=== PATIENT | female | born 1970 | race American Indian/Alaskan Native ===

== ENCOUNTER 2017-09-02 15:15 | Inpatient (IN) | payer OTHER ==
[2017-09-02 16:21] LABS: Basophils % (Auto) 0.2 % (0.0-1.8); Eosinophils % (Auto) 0.8 % (0.0-4.3); Hematocrit 28.6 % (30.3-42.9); Hemoglobin 9.4 gm/dl (10.1-14.3); Lymphocytes # (Auto) 2.5 K/mm3 (1.2-5.4); Lymphocytes % (Auto) 41.6 % (13.4-35.0); Mean Corpuscular HGB Conc 33 % (30-34); Mean Corpuscular Hemoglobin 29 pg (28-32); Mean Corpuscular Volume 89 fl (79-97); Monocytes # (Auto) 0.5 K/mm3 (0.0-0.8); Monocytes % (Auto) 8.1 % (0.0-7.3); Platelet Count 244 K/mm3 (140-440); Red Blood Count 3.22 M/mm3 (3.65-5.03); Red Cell Distribution Width 14.1 % (13.2-15.2)
[2017-09-02 16:44] LABS: BUN/Creatinine Ratio 27; Blood Urea Nitrogen 16 mg/dL (7-17); Calcium 8.8 mg/dL (8.4-10.2); Hemolysis Index 8
[2017-09-02 16:45] LABS: INR 0.99 (0.87-1.13)
[2017-09-02 16:46] LABS: Partial Thromboplastin Time 28.9 Sec. (24.2-36.6)
--- NOTE | 2017-09-02 17:38 | Emergency Department Report ---
ED GI Bleed HPI - General Chief complaint: GI Bleed Stated complaint: BLOODY STOOL Time Seen by Provider: 09/02/17 17:21 Source: patient Mode of arrival: Ambulatory Limitations: No Limitations - History of Present Illness Initial comments: 46-year-old female past medical history obesity,? Anemia, right knee surgery presents with complaint of 2 weeks of intermittent bloody stools. Patient states that in the last several days she has had multiple episodes of bright red blood per rectum bright red blood on toilet paper and dark blood on stools when defecating. Patient denies chest pain shortness of breath palpitations. Does state she has noted some pallor of her skin. Patient is awake alert and oriented 3 not in acute distress. Patient is concerned that she has been taking diclofenac for pain and this may have contributed to her bright red blood per rectum. Patient denies any abdominal pain. Last menstrual period one month ago. MD complaint: blood on toilet paper, melena Onset/Timin -: week(s) Quality: painless Consistency: constant Improves with: none Worsens with: none Context: other (NSAID use) Associated Symptoms: denies other symptoms Treatments Prior to Arrival: none - Related Data Allergies Allergy/AdvReac Type Severity Reaction Status Date / Time codeine AdvReac Nausea Verified 09/02/17 15:28 ED Review of Systems ROS: Stated complaint: BLOODY STOOL Other details as noted in HPI Constitutional: denies: chills, fever Eyes: denies: eye pain, eye discharge, vision change ENT: denies: ear pain, throat pain Respiratory: denies: cough, shortness of breath, wheezing Cardiovascular: denies: chest pain, palpitations Endocrine: no symptoms reported Gastrointestinal: denies: abdominal pain, nausea, diarrhea Genitourinary: denies: urgency, dysuria, discharge Musculoskeletal: denies: back pain, joint swelling, arthralgia Skin: denies: rash, lesions Neurological: denies: headache, weakness, paresthesias Psychiatric: denies: anxiety, depression Hematological/Lymphatic: denies: easy bleeding, easy bruising ED Past Medical Hx - Past Medical History Previous Medical History?: No - Surgical History Past Surgical History?: Yes Additional Surgical History: Knee replacement - Social History Smoking Status: Never Smoker Substance Use Type: None ED Physical Exam - General Limitations: No Limitations General appearance: alert, in no apparent distress - Head Head exam: Present: atraumatic, normocephalic - Eye Eye exam: Present: normal appearance, PERRL, EOMI - ENT ENT exam: Present: mucous membranes moist - Neck Neck exam: Present: normal inspection - Respiratory Respiratory exam: Present: normal lung sounds bilaterally. Absent: respiratory distress - Cardiovascular Cardiovascular Exam: Present: regular rate, normal rhythm. Absent: systolic murmur, diastolic murmur, rubs, gallop - GI/Abdominal GI/Abdominal exam: Present: soft, normal bowel sounds - Rectal Rectal exam: Present: heme (+) stool, black stool, bloody stool - Extremities Exam Extremities exam: Present: normal inspection - Back Exam Back exam: Present: normal inspection - Neurological Exam Neurological exam: Present: alert, oriented X3 - Psychiatric Psychiatric exam: Present: normal affect, normal mood - Skin Skin exam: Present: warm, dry, intact, normal color. Absent: rash ED Course Vital Signs 09/02/17 15:24 Temperature 98.4 F Pulse Rate 103 H Respiratory 16 Rate Blood Pressure 105/78 O2 Sat by Pulse 100 Oximetry ED Medical Decision Making - Lab Data Result diagrams: 09/02/17 16:12 09/02/17 16:12 - Medical Decision Making A/P: Concern for lower GI bleed, bright red blood per rectum 1- patient has been taking NSAIDs specifically diclofenac for several weeks 2- stool guaic positive, Hemoccult card positive. H&H . 3-case discussed with ED attending Louise moore for admission. Patient will require consultation and evaluation by gastroenterology for possible colonoscopy given suspicion of lower GI bleed 4-pt is amenable to this clinical plan and understands our clinical concern Critical care attestation.: If time is entered above; I have spent that time in minutes in the direct care of this critically ill patient, excluding procedure time. ED Disposition Clinical Impression: Lower GI bleed, Rectal bleeding Disposition: DC-09 OP ADMIT IP TO THIS HOSP Is pt being admited?: Yes Does the pt Need Aspirin: No Condition: Stable Forms: Accompanied Note
[2017-09-02] MEDS ORDERED: NACL 0.9% 1000 ML 1,000 ML IV ONE (18:27)
[2017-09-02 18:50] LABS: Basophils % (Auto) 0.2 % (0.0-1.8); Eosinophils # (Auto) 0.1 K/mm3 (0.0-0.4); Eosinophils % (Auto) 0.9 % (0.0-4.3); Hematocrit 27.8 % (30.3-42.9); Hemoglobin 9.2 gm/dl (10.1-14.3); Lymphocytes # (Auto) 2.4 K/mm3 (1.2-5.4); Lymphocytes % (Auto) 43.4 % (13.4-35.0); Mean Corpuscular HGB Conc 33 % (30-34); Mean Corpuscular Hemoglobin 30 pg (28-32); Mean Corpuscular Volume 89 fl (79-97); Monocytes # (Auto) 0.4 K/mm3 (0.0-0.8); Monocytes % (Auto) 8.1 % (0.0-7.3); Platelet Count 226 K/mm3 (140-440)
[2017-09-02] MEDS ORDERED: SODIUM CHLORIDE FLUSH SYRINGE 10 ML IV PRN (21:23)
[2017-09-02] MEDS ORDERED: TYLENOL PO PRN (21:23)
[2017-09-02] MEDS ORDERED: MORPHINE IV PRN (21:23)
[2017-09-02] MEDS ORDERED: DILAUDID IV PRN (21:23)
[2017-09-02] MEDS ORDERED: ZOFRAN IV PRN (21:23)
--- NOTE | 2017-09-02 21:23 | History and Physical Report ---
History of Present Illness Date of examination: 09/02/17 Date of admission: 09/02/17 18:17 Chief complaint: CC Lower GI Bleed History of present illness: History of Present Illness: 46-year-old female past medical history of obesity DJD S/p Rt Knee surgery presents with complaint of 2 weeks of intermittent bloody stools. Patient states that in the last several days she has had multiple episodes of bright red blood per rectum bright red blood on toilet paper and dark blood on stools when defecating. Patient denies chest pain shortness of breath palpitations. Does state she has noted some pallor of her skin. Patient is awake alert and oriented 3 not in acute distress. Patient is concerned that she has been taking diclofenac for pain and this may have contributed to her bright red blood per rectum. Taking Diclofenac for one year. Patient denies any abdominal pain. Last menstrual period one month ago. Past Medical History DJD sec to Obesity Surgical History Past Surgical History?: Yes Additional Surgical History: Knee replacement Social History Smoking Status: Never Smoker Substance Use Type: None Family History Htn Review of Systems ROS: Stated complaint: BLOODY STOOL Other details as noted in HPI Constitutional: denies: chills, fever Eyes: denies: eye pain, eye discharge, vision change ENT: denies: ear pain, throat pain Respiratory: denies: cough, shortness of breath, wheezing Cardiovascular: denies: chest pain, palpitations Endocrine: no symptoms reported Gastrointestinal: denies: abdominal pain, nausea, diarrhea Genitourinary: denies: urgency, dysuria, discharge Musculoskeletal: denies: back pain, joint swelling, arthralgia Skin: denies: rash, lesions Neurological: denies: headache, weakness, paresthesias Psychiatric: denies: anxiety, depression Hematological/Lymphatic: denies: easy bleeding, easy bruising Medications and Allergies Allergies Allergy/AdvReac Type Severity Reaction Status Date / Time codeine AdvReac Nausea Verified 09/02/17 15:28 Home Medications Medication Instructions Recorded Confirmed Last Taken Type No Known Home Medications [No 09/02/17 09/02/17 Unknown History Reported Home Medications] Active Meds: Active Medications Sodium Chloride (Nacl 0.9% 1000 Ml) 1,000 mls @ 125 mls/hr IV ONCE ONE Stop: 09/03/17 03:26 Last Admin: 09/02/17 19:25 Dose: 125 mls/hr Exam - Constitutional Vitals: Temp Pulse Resp BP Pulse Ox 98.4 F 98 H 18 100/74 99 09/02/17 20:44 09/02/17 20:44 09/02/17 20:44 09/02/17 20:44 09/02/17 20:44 General appearance: Present: no acute distress, well-nourished - EENT Eyes: Present: PERRL ENT: hearing intact, clear oral mucosa - Neck Neck: Present: supple, normal ROM - Respiratory Respiratory effort: normal Respiratory: bilateral: CTA - Cardiovascular Heart rate: 80 Rhythm: regular Heart Sounds: Present: S1 & S2. Absent: rub, click - Extremities Extremities: pulses symmetrical, No edema Peripheral Pulses: within normal limits - Abdominal General gastrointestinal: Present: soft, non-tender, non-distended, normal bowel sounds Female genitourinary: Present: normal - Rectal Rectal Exam: stool bloody - Integumentary Integumentary: Present: clear, warm, dry - Musculoskeletal Musculoskeletal: gait normal, strength equal bilaterally - Psychiatric Psychiatric: appropriate mood/affect, intact judgment & insight - Neurologic Neurologic: CNII-XII intact, moves all extremities - Allied Health Allied health notes reviewed: nursing, case management Results - Labs CBC & Chem 7: 09/02/17 18:42 09/02/17 16:12 Labs: Laboratory Last Values WBC 5.5 K/mm3 (4.5-11.0) 09/02/17 18:42 RBC 3.10 M/mm3 (3.65-5.03) L 09/02/17 18:42 Hgb 9.2 gm/dl (10.1-14.3) L 09/02/17 18:42 Hct 27.8 % (30.3-42.9) L 09/02/17 18:42 MCV 89 fl (79-97) 09/02/17 18:42 MCH 30 pg (28-32) 09/02/17 18:42 MCHC 33 % (30-34) 09/02/17 18:42 RDW 14.0 % (13.2-15.2) 09/02/17 18:42 Plt Count 226 K/mm3 (140-440) 09/02/17 18:42 Lymph % (Auto) 43.4 % (13.4-35.0) H 09/02/17 18:42 [place] % (Auto) 8.1 % (0.0-7.3) H 09/02/17 18:42 Eos % (Auto) 0.9 % (0.0-4.3) 09/02/17 18:42 Baso % (Auto) 0.2 % (0.0-1.8) 09/02/17 18:42 Lymph # 2.4 K/mm3 (1.2-5.4) 09/02/17 18:42 [place] # 0.4 K/mm3 (0.0-0.8) 09/02/17 18:42 Eos # 0.1 K/mm3 (0.0-0.4) 09/02/17 18:42 Baso # 0.0 K/mm3 (0.0-0.1) 09/02/17 18:42 Seg Neutrophils % 47.4 % (40.0-70.0) 09/02/17 18:42 Seg Neutrophils # 2.6 K/mm3 (1.8-7.7) 09/02/17 18:42 PT 13.6 Sec. (12.2-14.9) 09/02/17 16:12 INR 0.99 (0.87-1.13) 09/02/17 16:12 APTT 28.9 Sec. (24.2-36.6) 09/02/17 16:12 Sodium 139 mmol/L (137-145) 09/02/17 16:12 Potassium 4.3 mmol/L (3.6-5.0) 09/02/17 16:12 Chloride 101.5 mmol/L (98-107) 09/02/17 16:12 Carbon Dioxide 24 mmol/L (22-30) 09/02/17 16:12 Anion Gap 18 mmol/L 09/02/17 16:12 BUN 16 mg/dL (7-17) 09/02/17 16:12 Creatinine 0.6 mg/dL (0.7-1.2) L 09/02/17 16:12 Estimated GFR > 60 ml/min 09/02/17 16:12 BUN/Creatinine Ratio 27 % 09/02/17 16:12 Glucose 107 mg/dL (65-100) H 09/02/17 16:12 Calcium 8.8 mg/dL (8.4-10.2) 09/02/17 16:12 Blood Type O POSITIVE 09/02/17 18:42 Antibody Screen Negative 09/02/17 18:42 Short CBC 09/02/17 09/02/17 Range/Units 16:12 18:42 WBC 6.0 5.5 (4.5-11.0) K/mm3 Hgb 9.4 L 9.2 L (10.1-14.3) gm/dl Hct 28.6 L 27.8 L (30.3-42.9) % Plt Count 244 226 (140-440) K/mm3 BMP 09/02/17 16:12 Sodium 139 Potassium 4.3 Chloride 101.5 Carbon Dioxide 24 BUN 16 Creatinine 0.6 L Glucose 107 H Calcium 8.8 - Imaging and Cardiology EKG: report reviewed Assessment and Plan Advance Directives: Yes (Full code) VTE prophylaxis?: Chemical, Mechanical Plan of care discussed with patient/family: Yes - Patient Problems (1) Lower GI bleed Current Visit: Yes Status: Acute Plan to address problem: Because of BRBPR I am more in favor of Int Hemorrhoids Diff DX of PUD /Gastric erosions/Diverticulosis to be ruled out IV Protonix IV Fluids GI consult requested (2) DJD (degenerative joint disease) Current Visit: Yes Status: Acute (3) DJD (degenerative joint disease) Current Visit: Yes Status: Chronic Qualifiers: Osteoarthritis location: knee Laterality: bilateral Qualified Code(s): M17.4 - Other bilateral secondary osteoarthritis of knee Plan to address problem: Avoid NSAIDS Tramadol or Tylenol Prn (4) Obesity (BMI 30-39.9) Current Visit: Yes Status: Chronic Plan to address problem: Counselled (5) DVT prophylaxis Current Visit: Yes Status: Acute Plan to address problem: SCD's
[2017-09-02] MEDS: D5NS 1,000 ML IV SCH (21:57)
[2017-09-02] MEDS ORDERED: PEPCID IV SCH (22:00)
[2017-09-03] MEDS: SODIUM CHLORIDE FLUSH SYRINGE 10 ML IV SCH ×3 (01:00→22:00)
[2017-09-03] MEDS: PROTONIX IV SCH ×2 (01:00→11:24)
[2017-09-03 07:47] LABS: Basophils % (Auto) 0.2 % (0.0-1.8); Eosinophils # (Auto) 0.1 K/mm3 (0.0-0.4); Eosinophils % (Auto) 1.8 % (0.0-4.3); Hematocrit 24.1 % (30.3-42.9); Hemoglobin 8.1 gm/dl (10.1-14.3); Lymphocytes # (Auto) 2.1 K/mm3 (1.2-5.4); Lymphocytes % (Auto) 42.6 % (13.4-35.0); Mean Corpuscular HGB Conc 34 % (30-34); Mean Corpuscular Hemoglobin 30 pg (28-32); Mean Corpuscular Volume 88 fl (79-97); Monocytes # (Auto) 0.5 K/mm3 (0.0-0.8); Monocytes % (Auto) 9.9 % (0.0-7.3); Platelet Count 212 K/mm3 (140-440); Red Blood Count 2.72 M/mm3 (3.65-5.03); Red Cell Distribution Width 14.2 % (13.2-15.2)
[2017-09-03 08:12] LABS: Alanine Aminotransferase 14 units/L (7-56); Albumin 3.5 g/dL (3.9-5); BUN/Creatinine Ratio 28; Blood Urea Nitrogen 14 mg/dL (7-17); Calcium 8.6 mg/dL (8.4-10.2); Hemolysis Index 2
--- NOTE | 2017-09-03 10:50 | Progress Note ---
Assessment and Plan Assessment and plan: 46F w hx of DJD sp R TKR 1 month ago, who has been on diclofenac x 1 year who pw 2 weeks of bloody stools she admits that she was given narcotic pain meds, which caused constipation, after taking stool softeners, her bowels started moving following by bloody stools Lower GI bleed Because of BRBPR I am more in favor of Int Hemorrhoids Diff DX of PUD /Gastric erosions/Diverticulosis to be ruled out -dc diclofenac IV Protonix IV Fluids GI consult requested Acute blood loss anemia -monitor Hg, keep above 7 DJD (degenerative joint disease) avoid most nsaids, tramadol and tylenol Obesity (BMI 30-39.9) Counselled about lifestyle modification (5) DVT prophylaxis Current Visit: Yes Status: Acute Plan to address problem: SCD's History Interval history: she continues to have painless rectal bleeding, BRBPR Review of systems Constitutional: No fevers, no malaise, no joint pains CVS: No chest pain, no orthopnea, no dyspnea on exertion, no pedal edema GI: No abdominal pain, no diarrhea, no vomiting, no constipation Respiratory: No shortness of breath, no wheezing, no coughing Hospitalist Physical - Physical exam Narrative exam: General.: Appears well, no distress, nontoxic HEENT: Moist mucous membranes, extraocular muscles intact, no lymphadenopathy Neck: supple Cardiac: S1-S2 heard Lungs: clear to auscultation bilaterally Abdomen: soft , nontender, nondistended, bowel sounds positive Extremities: no edema clubbing or cyanosis Skin: no rash or lesions Neurologic: no gross focal deficits Psych: appropriate behavior, appropriate mood, corporative, judgment intact - Constitutional Vitals: Temp Pulse Resp BP Pulse Ox 99.2 F 101 H 20 106/52 99 09/03/17 07:32 09/03/17 07:32 09/03/17 07:32 09/03/17 07:32 09/03/17 07:32 General appearance: Present: no acute distress, well-nourished Results - Labs CBC & Chem 7: 09/03/17 14:34 09/03/17 07:21 Labs: Laboratory Last Values WBC 4.9 K/mm3 (4.5-11.0) 09/03/17 07:21 RBC 2.72 M/mm3 (3.65-5.03) L 09/03/17 07:21 Hgb 8.1 gm/dl (10.1-14.3) L 09/03/17 07:21 Hct 24.1 % (30.3-42.9) L 09/03/17 07:21 MCV 88 fl (79-97) 09/03/17 07:21 MCH 30 pg (28-32) 09/03/17 07:21 MCHC 34 % (30-34) 09/03/17 07:21 RDW 14.2 % (13.2-15.2) 09/03/17 07:21 Plt Count 212 K/mm3 (140-440) 09/03/17 07:21 Lymph % (Auto) 42.6 % (13.4-35.0) H 09/03/17 07:21 [place] % (Auto) 9.9 % (0.0-7.3) H 09/03/17 07:21 Eos % (Auto) 1.8 % (0.0-4.3) 09/03/17 07:21 Baso % (Auto) 0.2 % (0.0-1.8) 09/03/17 07:21 Lymph # 2.1 K/mm3 (1.2-5.4) 09/03/17 07:21 [place] # 0.5 K/mm3 (0.0-0.8) 09/03/17 07:21 Eos # 0.1 K/mm3 (0.0-0.4) 09/03/17 07:21 Baso # 0.0 K/mm3 (0.0-0.1) 09/03/17 07:21 Seg Neutrophils % 45.5 % (40.0-70.0) 09/03/17 07:21 Seg Neutrophils # 2.2 K/mm3 (1.8-7.7) 09/03/17 07:21 PT 13.6 Sec. (12.2-14.9) 09/02/17 16:12 INR 0.99 (0.87-1.13) 09/02/17 16:12 APTT 28.9 Sec. (24.2-36.6) 09/02/17 16:12 Sodium 141 mmol/L (137-145) 09/03/17 07:21 Potassium 4.1 mmol/L (3.6-5.0) 09/03/17 07:21 Chloride 105.4 mmol/L (98-107) 09/03/17 07:21 Carbon Dioxide 22 mmol/L (22-30) 09/03/17 07:21 Anion Gap 18 mmol/L 09/03/17 07:21 BUN 14 mg/dL (7-17) 09/03/17 07:21 Creatinine 0.5 mg/dL (0.7-1.2) L 09/03/17 07:21 Estimated GFR > 60 ml/min 09/03/17 07:21 BUN/Creatinine Ratio 28 % 09/03/17 07:21 Glucose 107 mg/dL (65-100) H 09/03/17 07:21 Hemoglobin A1c 4.6 % (4-6) 09/02/17 18:42 Calcium 8.6 mg/dL (8.4-10.2) 09/03/17 07:21 Total Bilirubin 0.40 mg/dL (0.1-1.2) 09/03/17 07:21 AST 17 units/L (5-40) 09/03/17 07:21 ALT 14 units/L (7-56) 09/03/17 07:21 Alkaline Phosphatase 112 units/L (35-129) 09/03/17 07:21 Total Protein 7.0 g/dL (6.3-8.2) 09/03/17 07:21 Albumin 3.5 g/dL (3.9-5) L 09/03/17 07:21 Albumin/Globulin Ratio 1.0 % 09/03/17 07:21 Blood Type O POSITIVE 09/02/17 18:42 Antibody Screen Negative 09/02/17 18:42
[2017-09-03] MEDS: D5NS 1,000 ML IV SCH (11:42)
--- NOTE | 2017-09-03 11:42 | Gastroenterology Consultation ---
History of Present Illness - Reason for Consult Consult date: 09/03/17 GI Bleed Requesting physician: MARII MURILLO - History of Present Illness The patient is a 46 yo female admitted with a 6 day hx of hematochezia with stool. This is described as painless, and there is no N/V/abdominal pain/F/C. She has about 1-2 bloody stools/day. She has no hx of this in the past nor is there a family hx of GI bleeding or GI cancer. She did have recent knee surgery and was on BID diclofenac for over 1 month (and has used this in the past), but stopped it about 4-5 days ago with the GI bleeding; she has no hx of PUD and had no hematemesis, dysphagia or dyspepsia. She has a hx of anemia as a child/young woman, but not recently; however, she did have a gastric bypass in 2003. She does take MVI therapy at home. She has had no prior upper or lower endoscopy. She has not rec'd any blood transfusions. Past History Past Medical History: anemia ((hx of as young woman)), other (Obesity) Past Surgical History: , Other (Gastric bypass 2003 ([facility]); recent knee surgery) Social history: denies: smoking, alcohol abuse Family history: no significant family history Medications and Allergies Allergies Allergy/AdvReac Type Severity Reaction Status Date / Time codeine AdvReac Nausea Verified 09/02/17 15:28 Home Medications Medication Instructions Recorded Confirmed Last Taken Type No Known Home Medications [No 09/02/17 09/02/17 Unknown History Reported Home Medications] Active Meds: Active Medications Acetaminophen (Tylenol) 650 mg PO Q4H PRN PRN Reason: Pain MILD(1-3)/Fever >100.5/SOSA Hydromorphone HCl (Dilaudid) 0.5 mg IV Q3H PRN PRN Reason: Pain , Severe (7-10) Dextrose/Sodium Chloride (D5ns) 1,000 mls @ 100 mls/hr IV DIRECT TERE Last Admin: 09/02/17 21:57 Dose: 100 mls/hr Morphine Sulfate (Morphine) 2 mg IV Q4H PRN PRN Reason: Pain, Moderate (4-6) Multivitamins/Minerals (Theragran-M Tab) 1 each PO QDAY TERE Ondansetron HCl (Zofran) 4 mg IV Q8H PRN PRN Reason: Nausea And Vomiting Pantoprazole Sodium (Protonix) 40 mg PO QDAY [facility] Polyethylene Glycol/Electrolytes (Golytely) 4,000 ml PO ONCE ONE Stop: 09/03/17 17:01 Sodium Chloride (Sodium Chloride Flush Syringe 10 Ml) 10 ml IV BID TERE Last Admin: 09/03/17 11:27 Dose: 10 ml Sodium Chloride (Sodium Chloride Flush Syringe 10 Ml) 10 ml IV PRN PRN PRN Reason: LINE FLUSH I have reviewed and reconciled medications Review of Systems - Review of Systems All systems: negative (as noted in the HPI) Exam - Constitutional Vital Signs: Temp Pulse Resp BP Pulse Ox 99.2 F 101 H 20 106/52 99 09/03/17 07:32 09/03/17 07:32 09/03/17 07:32 09/03/17 07:32 09/03/17 07:32 General appearance: no acute distress - EENT Eyes: PERRL, EOM intact ENT: hearing intact, clear oral mucosa - Neck Neck: supple, normal ROM - Respiratory Respiratory effort: normal Respiratory: bilateral: CTA - Cardiovascular Rhythm: regular Heart Sounds: Present: S1 & S2 Extremities: no ischemia, No edema - Gastrointestinal General gastrointestinal: Present: soft, non-tender, non-distended - Integumentary Integumentary: Present: clear, warm, dry - Neurologic Neurological: alert and oriented x3 - Labs CBC & Chem 7: 09/03/17 07:21 09/03/17 07:21 Lab Results: Laboratory Results - last 24 hr 09/02/17 09/02/17 09/02/17 16:12 16:12 16:12 WBC 6.0 RBC 3.22 L Hgb 9.4 L Hct 28.6 L MCV 89 MCH 29 MCHC 33 RDW 14.1 Plt Count 244 Lymph % (Auto) 41.6 H [place] % (Auto) 8.1 H Eos % (Auto) 0.8 Baso % (Auto) 0.2 Lymph # 2.5 [place] # 0.5 Eos # 0.0 Baso # 0.0 Seg Neutrophils % 49.3 Seg Neutrophils # 2.9 PT 13.6 INR 0.99 APTT 28.9 Sodium 139 Potassium 4.3 Chloride 101.5 Carbon Dioxide 24 Anion Gap 18 BUN 16 Creatinine 0.6 L Estimated GFR > 60 BUN/Creatinine Ratio 27 Glucose 107 H Hemoglobin A1c Calcium 8.8 Total Bilirubin AST ALT Alkaline Phosphatase Total Protein Albumin Albumin/Globulin Ratio Blood Type Antibody Screen 09/02/17 09/02/17 09/02/17 18:42 18:42 18:42 WBC 5.5 RBC 3.10 L Hgb 9.2 L Hct 27.8 L MCV 89 MCH 30 MCHC 33 RDW 14.0 Plt Count 226 Lymph % (Auto) 43.4 H [place] % (Auto) 8.1 H Eos % (Auto) 0.9 Baso % (Auto) 0.2 Lymph # 2.4 [place] # 0.4 Eos # 0.1 Baso # 0.0 Seg Neutrophils % 47.4 Seg Neutrophils # 2.6 PT INR APTT Sodium Potassium Chloride Carbon Dioxide Anion Gap BUN Creatinine Estimated GFR BUN/Creatinine Ratio Glucose Hemoglobin A1c 4.6 Calcium Total Bilirubin AST ALT Alkaline Phosphatase Total Protein Albumin Albumin/Globulin Ratio Blood Type O POSITIVE Antibody Screen Negative 09/03/17 09/03/17 07:21 07:21 WBC 4.9 RBC 2.72 L Hgb 8.1 L Hct 24.1 L MCV 88 MCH 30 MCHC 34 RDW 14.2 Plt Count 212 Lymph % (Auto) 42.6 H [place] % (Auto) 9.9 H Eos % (Auto) 1.8 Baso % (Auto) 0.2 Lymph # 2.1 [place] # 0.5 Eos # 0.1 Baso # 0.0 Seg Neutrophils % 45.5 Seg Neutrophils # 2.2 PT INR APTT Sodium 141 Potassium 4.1 Chloride 105.4 Carbon Dioxide 22 Anion Gap 18 BUN 14 Creatinine 0.5 L Estimated GFR > 60 BUN/Creatinine Ratio 28 Glucose 107 H Hemoglobin A1c Calcium 8.6 Total Bilirubin 0.40 AST 17 ALT 14 Alkaline Phosphatase 112 Total Protein 7.0 Albumin 3.5 L Albumin/Globulin Ratio 1.0 Blood Type Antibody Screen Assessment and Plan - Patient Problems (1) Acute blood loss anemia Current Visit: Yes Status: Acute Plan to address problem: - Likely lower source given colon/normal BUN, but chronic and high-dose diclofenac therapy puts her at risk for PUD as well. - Will plan EGD/colonoscopy after prep. - Transfuse as needed but currently hgb > 8. - MVI therapy given hx of gastric bypass. - CTA/Angiogram if needed. - Diclofenac (and other NSAIDs) discontinued; already on protonix.
[2017-09-03] MEDS: PROTONIX PO SCH (13:00)
[2017-09-03] MEDS: THERAGRAN-M Tab PO SCH (13:00)
[2017-09-03 14:51] LABS: Hematocrit 23.7 % (30.3-42.9); Hemoglobin 7.7 gm/dl (10.1-14.3)
[2017-09-03] MEDS ORDERED: GOLYTELY PO ONE (17:00)
[2017-09-04] MEDS: D5NS 1,000 ML IV SCH ×2 (01:58→21:53)
[2017-09-04 06:45] LABS: Basophils % (Auto) 0.2 % (0.0-1.8); Eosinophils # (Auto) 0.1 K/mm3 (0.0-0.4); Hemoglobin 6.4 gm/dl (10.1-14.3); Lymphocytes # (Auto) 1.8 K/mm3 (1.2-5.4); Lymphocytes % (Auto) 41.2 % (13.4-35.0); Mean Corpuscular HGB Conc 33 % (30-34); Mean Corpuscular Hemoglobin 29 pg (28-32); Mean Corpuscular Volume 89 fl (79-97); Monocytes # (Auto) 0.4 K/mm3 (0.0-0.8); Monocytes % (Auto) 9.9 % (0.0-7.3); Platelet Count 177 K/mm3 (140-440); Red Blood Count 2.19 M/mm3 (3.65-5.03); Red Cell Distribution Width 13.9 % (13.2-15.2)
[2017-09-04 06:53] LABS: Hematocrit 19.6 % (30.3-42.9)
[2017-09-04 07:03] LABS: BUN/Creatinine Ratio 16; Blood Urea Nitrogen 8 mg/dL (7-17); Calcium 7.9 mg/dL (8.4-10.2); Hemolysis Index 9
--- NOTE | 2017-09-04 07:03 | Progress Note ---
Hospitalist Physical - Constitutional Vitals: Temp Pulse Resp BP Pulse Ox 97.7 F 91 H 16 102/50 100 09/03/17 23:11 09/03/17 23:11 09/03/17 23:11 09/04/17 01:30 09/03/17 23:11 General appearance: Present: no acute distress, well-nourished Results - Labs CBC & Chem 7: 09/04/17 06:27 09/03/17 07:21 Labs: Laboratory Last Values WBC 4.4 K/mm3 (4.5-11.0) L 09/04/17 06:27 RBC 2.19 M/mm3 (3.65-5.03) L 09/04/17 06:27 Hgb 6.4 gm/dl (10.1-14.3) L 09/04/17 06:27 Hct 19.6 % (30.3-42.9) L* 09/04/17 06:27 MCV 89 fl (79-97) 09/04/17 06: MCH 29 pg (28-32) 09/04/17 06:27 MCHC 33 % (30-34) 09/04/17 06:27 RDW 13.9 % (13.2-15.2) 09/04/17 06:27 Plt Count 177 K/mm3 (140-440) 09/04/17 06:27 Lymph % (Auto) 41.2 % (13.4-35.0) H 09/04/17 06:27 [place] % (Auto) 9.9 % (0.0-7.3) H 09/04/17 06:27 Eos % (Auto) 2.0 % (0.0-4.3) 09/04/17 06:27 Baso % (Auto) 0.2 % (0.0-1.8) 09/04/17 06:27 Lymph # 1.8 K/mm3 (1.2-5.4) 09/04/17 06:27 [place] # 0.4 K/mm3 (0.0-0.8) 09/04/17 06:27 Eos # 0.1 K/mm3 (0.0-0.4) 09/04/17 06:27 Baso # 0.0 K/mm3 (0.0-0.1) 09/04/17 06:27 Seg Neutrophils % 46.7 % (40.0-70.0) 09/04/17 06:27 Seg Neutrophils # 2.0 K/mm3 (1.8-7.7) 09/04/17 06:27 PT 13.6 Sec. (12.2-14.9) 09/02/17 16:12 INR 0.99 (0.87-1.13) 09/02/17 16:12 APTT 28.9 Sec. (24.2-36.6) 09/02/17 16:12 Sodium 141 mmol/L (137-145) 09/03/17 07:21 Potassium 4.1 mmol/L (3.6-5.0) 09/03/17 07:21 Chloride 105.4 mmol/L (98-107) 09/03/17 07:21 Carbon Dioxide 22 mmol/L (22-30) 09/03/17 07:21 Anion Gap 18 mmol/L 09/03/17 07:21 BUN 14 mg/dL (7-17) 09/03/17 07:21 Creatinine 0.5 mg/dL (0.7-1.2) L 09/03/17 07:21 Estimated GFR > 60 ml/min 09/03/17 07:21 BUN/Creatinine Ratio 28 % 09/03/17 07:21 Glucose 107 mg/dL (65-100) H 09/03/17 07:21 Hemoglobin A1c 4.6 % (4-6) 09/02/17 18:42 Calcium 8.6 mg/dL (8.4-10.2) 09/03/17 07:21 Total Bilirubin 0.40 mg/dL (0.1-1.2) 09/03/17 07:21 AST 17 units/L (5-40) 09/03/17 07:21 ALT 14 units/L (7-56) 09/03/17 07:21 Alkaline Phosphatase 112 units/L (35-129) 09/03/17 07:21 Total Protein 7.0 g/dL (6.3-8.2) 09/03/17 07:21 Albumin 3.5 g/dL (3.9-5) L 09/03/17 07:21 Albumin/Globulin Ratio 1.0 % 09/03/17 07:21 Blood Type O POSITIVE 09/02/17 18:42 Antibody Screen Negative 09/02/17 18:42 Crossmatch See Detail 09/02/17 18:42
[2017-09-04] MEDS ORDERED: NACL 0.9% 500 ML 500 ML IV ONE (10:00)
[2017-09-04] MEDS ORDERED: WATER FOR IRRIG STERILE IR ONE (12:57)
[2017-09-04] MEDS ORDERED: WATER FOR IRRIG STERILE ONE (12:57)
[2017-09-04] MEDS ORDERED: NACL 0.9% 1000 ML 1,000 ML IV SCH (13:00)
[2017-09-04] MEDS ORDERED: XYLOCAINE MPF 2% ONE (13:00)
--- NOTE | 2017-09-04 13:43 | Anesthesia Day of Surgery ---
Anesthesia Day of Surgery - Day of Surgery Patient Examined: Yes Patient H&P Reviewed: Yes Patient is NPO: Yes
--- NOTE | 2017-09-04 13:43 | Anesthesia Consultation ---
Anesthesia Consult and Med Hx Date of service: 09/04/17 - Airway Anesthetic Teeth Evaluation: Caps (left lower broken cap, right lower loose cap) ROM Head & Neck: Adequate Mental/Hyoid Distance: Adequate Mallampati Class: Class II Intubation Access Assessment: Probably Good - Pulmonary Exam CTA: Yes - Cardiac Exam Cardiac Exam: RRR - Pre-Operative Health Status ASA Pre-Surgery Classification: ASA2 Proposed Anesthetic Plan: MAC - Pre-Anesthesia Comment Pre-Anesthesia Comments: DJD s/p right knee replacement. H&H 6.4/19.6 - Hematic Hx Anemia: Yes - Other Systems Hx Obesity: Yes
[2017-09-04] MEDS ORDERED: DIPRIVAN 10 MG/ML IV ONE ×3 (13:48→14:35)
--- NOTE | 2017-09-04 15:02 | Post Operative Note ---
Pre-op diagnosis: GI bleed Post-op diagnosis: other (Normal GBYP anatomy. Few diverticula in region of hepatic flexure, suspicious for bleeding source.) Findings: 1. Normal upper endoscopy with Gastric Bypass anatomy 2. Few diverticula in hepatic flexure, with small amount of adherent blood. No accumulation. 3. Otherwise normal colon and terminal ileum. Procedure: EGD/Colon Anesthesia: MAC Surgeon: ANGIE LOPEZ Estimated blood loss: none Pathology: none Condition: stable Disposition: floor (If rebleeds, get CTA if vigorous, and bleeding scan if not.)
[2017-09-04] MEDS: PROTONIX PO SCH (16:25)
[2017-09-04] MEDS: SODIUM CHLORIDE FLUSH SYRINGE 10 ML IV SCH ×2 (16:32→21:53)
[2017-09-04] MEDS: THERAGRAN-M Tab PO SCH (16:33)
--- NOTE | 2017-09-05 00:22 | Operative Report ---
PROCEDURE: Upper endoscopy and colonoscopy PREOPERATIVE DIAGNOSIS: Hematochezia and dyspepsia. POSTOPERATIVE DIAGNOSES: Normal gastric bypass anatomy and normal colonoscopy to terminal ileum except for diffuse diverticula located in the region of the hepatic flexure with some adherent blood. Otherwise, colonic effluent was clear. SEDATION: MAC by Anesthesia. HISTORY: The patient is a 46-year-old [employer], who presents with hematochezia. Procedure, indications, risks, and benefits were explained and consent was obtained. The patient was placed in left lateral decubitus position and sedated. Fuji video upper endoscope was passed through the mouth and oropharynx into the jejunum. Scope was then gradually withdrawn with close inspection of mucosa. FINDINGS: 1. Normal esophagus with sharp Z-line located at 37 cm from the incisors. 2. A 5 cm gastric pouch with normal gastrojejunal anastomosis. 3. Visualized portions of the jejunum were normal. No bleeding source was identified. The patient was subsequently rotated. Fuji video colonoscope was passed through the rectum after digital examination and passed with minimal difficulty to the terminal ileum, which was deeply cannulated. Scope was then gradually withdrawn with close inspection of the mucosa. FINDINGS: 1. Normal appearing terminal ileum with clear effluent. 2. Approximately 3 small diverticula noted in the region of the hepatic flexure with blood adherent to this region and to the tics. This was rinsed off and no further reaccumulation was noted. 3. Remainder of visualized colonic mucosa was normal appearing with no evidence of mass lesions, vascular lesions, or inflammation. There was no other blood noted throughout the colon. The patient tolerated the procedure well without immediate complications. IMPRESSION: 1. Normal gastric bypass anatomy with no evidence of bleeding source. 2. Normal colonoscopy to terminal ileum except for diverticula in the region of the hepatic flexure, which are suspicious as the source of bleeding given the small amount of adherent blood noted in that region. PLAN: 1. Advance diet and monitor H and H. 2. Avoid NSAIDs and aspirin. 3. If rebleeds, will need bleeding scan or CT angiogram. JOB# [id number] HRC/NTS
[2017-09-05] MEDS: D5NS 1,000 ML IV SCH (06:36)
[2017-09-05 06:55] LABS: Basophils % (Auto) 0.3 % (0.0-1.8); Eosinophils # (Auto) 0.1 K/mm3 (0.0-0.4); Eosinophils % (Auto) 2.1 % (0.0-4.3); Hemoglobin 7.3 gm/dl (10.1-14.3); Lymphocytes # (Auto) 1.9 K/mm3 (1.2-5.4); Lymphocytes % (Auto) 40.4 % (13.4-35.0); Mean Corpuscular HGB Conc 33 % (30-34); Mean Corpuscular Hemoglobin 29 pg (28-32); Mean Corpuscular Volume 89 fl (79-97); Monocytes # (Auto) 0.4 K/mm3 (0.0-0.8); Monocytes % (Auto) 8.4 % (0.0-7.3); Platelet Count 202 K/mm3 (140-440); Red Blood Count 2.47 M/mm3 (3.65-5.03); Red Cell Distribution Width 14.4 % (13.2-15.2)
[2017-09-05 08:31] VITALS: BP 120/62
[2017-09-05] MEDS: SODIUM CHLORIDE FLUSH SYRINGE 10 ML IV SCH (10:15)
[2017-09-05] MEDS: PROTONIX PO SCH (10:15)
[2017-09-05] MEDS: THERAGRAN-M Tab PO SCH (10:16)
--- NOTE | 2017-09-05 10:29 | Gastroenterology Progress Note ---
Assessment and Plan 1.acute blood loss anemia 2.h/o gastric bypass -HGB 7.3-stable -continue to monitor H/H and transfuse as needed -no active signs of bleeding overnight or this am -s/p EGD/colonoscopy yesterday that revealed a normal upper endoscopy with gastric bypass anatomy and diverticula in hepatic flexure with small amount of adherent blood (most likely source of bleed) -if pt rebleeds, recommend a CTA vs bleeding scan -okay to advance diet -no further GI recommendations at this time, pt okay to be d/c per GI standpoint with f/u clinic appt in 2 weeks -will sign off, please call if needed Subjective Date of service: 09/05/17 Principal diagnosis: GI bleed Interval history: Patient sitting up in bed this am w/o distress or complaints. Denies any active signs of bleeding overnight or this am. She is requesting to have her diet advanced and states "I am ready to go home". Objective - Constitutional Vitals: Temp Pulse Resp BP Pulse Ox 98.4 F 93 H 18 120/62 97 09/05/17 07:31 09/05/17 07:31 09/05/17 07:31 09/05/17 07:31 09/05/17 07:31 General appearance: no acute distress - Respiratory Respiratory: bilateral: CTA - Cardiovascular Rhythm: regular Heart Sounds: Present: S1 & S2 - Gastrointestinal General gastrointestinal: Present: soft, non-tender, non-distended, normal bowel sounds - Neurologic Neurological: alert and oriented x3 - Labs CBC & Chem 7: 09/05/17 06:43 09/04/17 06:27 Labs: Laboratory Results - last 24 hr 09/02/17 09/05/17 18:42 06:43 WBC 4.6 RBC 2.47 L Hgb 7.3 L Hct 22.0 L MCV 89 MCH 29 MCHC 33 RDW 14.4 Plt Count 202 Lymph % (Auto) 40.4 H [place] % (Auto) 8.4 H Eos % (Auto) 2.1 Baso % (Auto) 0.3 Lymph # 1.9 [place] # 0.4 Eos # 0.1 Baso # 0.0 Seg Neutrophils % 48.8 Seg Neutrophils # 2.3 Crossmatch See Detail
--- NOTE | 2017-09-05 10:58 | Discharge Summary ---
Providers - Providers Date of Admission: 09/02/17 18:17 Attending physician: DAHLIA ANNA MD 09/02/17 21:27 Consult to Physician [CONS] Routine Consulting Provider: SMILEY HERNANDEZ Reason For Exam: GI Bleed Notified:: yes Primary care physician: [employer] Hospitalization Reason for admission: GI bleed, anemia Condition: Stable Procedures: Endoscopy Findings: 1. Normal upper endoscopy with Gastric Bypass anatomy 2. Few diverticula in hepatic flexure, with small amount of adherent blood. No accumulation. 3. Otherwise normal colon and terminal ileum. Hospital course: 46-year-old female past medical history of obesity DJD S/p Rt Knee surgery presents with complaint of 2 weeks of intermittent bloody stools. Patient states that in the last several days she has had multiple episodes of bright red blood per rectum bright red blood on toilet paper and dark blood on stools when defecating. Patient denies chest pain shortness of breath palpitations. Does state she has noted some pallor of her skin. Patient is awake alert and oriented 3 not in acute distress. Patient is concerned that she has been taking diclofenac for pain and this may have contributed to her bright red blood per rectum. Taking Diclofenac for one year. Patient denies any abdominal pain. Last menstrual period one month ago. Patient was transfused with packed RBCs, and EGD was done and findings are as follows: 1. Normal upper endoscopy with Gastric Bypass anatomy 2. Few diverticula in hepatic flexure, with small amount of adherent blood. No accumulation. 3. Otherwise normal colon and terminal ileum. Patient post transfusion hemoglobin and hematocrit was stable. Patient didn't have any bleeding. Patient said she will follow with [facility]. Patient was hemodynamically stable at the time of discharge. The patient was advised to stop taking NSAIDs. Patient was discharged with iron tablets. Disposition: - TO HOME OR SELFCARE Time spent for discharge: 31 minutes - Discharge Diagnoses (1) Acute blood loss anemia Status: Acute (2) Lower GI bleed Status: Acute (3) Obesity (BMI 30-39.9) Status: Chronic (4) Rectal bleeding Status: Acute (5) DJD (degenerative joint disease) Status: Chronic Qualifiers: Osteoarthritis location: knee Laterality: bilateral Qualified Code(s): M17.4 - Other bilateral secondary osteoarthritis of knee Core Measure Documentation - Palliative Care Palliative Care/ Comfort Measures: Not Applicable - Core Measures Any of the following diagnoses?: none Exam - Physical Exam Narrative exam: Not in cardiopulmonary distress. The patient is morbidly obese. Vital signs as documented. Head exam is unremarkable. No scleral icterus . Neck is without jugular venous distension, thyromegaly, or carotid bruits. Lungs are clear to auscultation. Cardiac exam reveals regular rate and Rhythm. First and second heart sounds normal. No murmurs, rubs or gallops. Abdominal exam reveals normal bowel sounds, no masses, no organomegaly and no aortic enlargement. Extremities are nonedematous and both femoral and pedal pulses are normal. SHANK BONER: Alert and oriented 3. No focal weakness. - Constitutional Vitals: Temp Pulse Resp BP Pulse Ox 98.4 F 93 H 18 120/62 97 09/05/17 07:31 09/05/17 07:31 09/05/17 07:31 09/05/17 07:31 09/05/17 07:31 Plan Activity: no restrictions Weight Bearing Status: Full Weight Bearing Diet: low cholesterol, low salt Follow up with: MALLY WEEKS MD [Primary Care Provider] - 7 Days ANGIE LOPEZ MD [Staff Physician] - 14 Days Forms: Accompanied Note Prescriptions: Ferrous Sulfate [Feosol 325 MG tab] 325 mg PO TID #90 tablet Pantoprazole [Protonix TAB] 40 mg PO QDAY #30 tablet
== END 2017-09-05 12:09 | disposition home or self-care (01) | DRG 378 ==
LOC: ED 15:15 → 3A 18:17
PROVIDERS: ADMIT Internal Medicine; ATTEND Internal Medicine
PROC: 0DJ08ZZ Inspection of Upper Intestinal Tract, Via Natural or Artificial Opening Endoscopic (ICD-10-PCS; principal; 2017-09-04)
PROC: 0DJD8ZZ Inspection of Lower Intestinal Tract, Via Natural or Artificial Opening Endoscopic (ICD-10-PCS; 2017-09-04)
PROC: 30233N1 Transfusion of Nonautologous Red Blood Cells into Peripheral Vein, Percutaneous Approach (ICD-10-PCS; 2017-09-04)
DX: K57.31 Diverticulosis of large intestine without perforation or abscess with bleeding (principal); Z68.41 Body mass index [BMI] 40.0-44.9, adult; D62 Acute posthemorrhagic anemia; M19.90 Unspecified osteoarthritis, unspecified site; E66.9 Obesity, unspecified; Z71.3 Dietary counseling and surveillance; Z88.5 Allergy status to narcotic agent; Z96.651 Presence of right artificial knee joint
CPT/HCPCS: 36415; 80048; 80053; 81025; 82271; 83036; 85014; 85018; 85025; 85610; 85730; 86850; 86900; 86901; 86920; 96360; C9113; J2704; J7030; J7040; J7042; P9016